=== PATIENT | male | born 1990 | race Hispanic/Latino ===

== ENCOUNTER 2017-12-28 18:26 | Emergency (ER) | payer SELFPAY ==
[2017-12-28 19:03] LABS: #Basophils 0.1 thou/uL (0.0-0.2); #Eosinphils 0.1 thou/uL (0.0-0.7); #Lymphocytes 3.7 thou/uL (1.20-3.40); #Monocytes 0.5 thou/uL (0.11-0.59); #Neutrophils 5.6 thou/uL (1.40-6.50); %Basophils 0.6 % (0.0-1.0); %Eosinophils 0.6 % (0.0-10.0); %Monocytes 4.8 % (0.0-10.0); %Neutrophils 56.9 % (42.0-75.0); Hemoglobin 15.6 g/dL (14.0-18.0); Mean Corpuscular HGB CONC 35.3 g/dL (32.0-36.0); Mean Corpuscular Hemoglobin 32.1 pg (27.0-31.0); Mean Platelet Volume 7.6 fL (7.4-10.4); Platelet Count 249 thou/uL (130-400); RBC Distribution Width 11.6 % (11.5-14.5); Red Blood Cell (RBC) Count 4.87 mill/uL (4.70-6.10); White Blood Cell (WBC) Count 9.9 thou/uL (4.8-10.8)
[2017-12-28 19:23] LABS: ALT (SGPT) 22 U/L (8-55); AST (SGOT) 17 U/L (5-34); Albumin 4.4 g/dL (3.5-5.0); Alkaline Phosphatase 75 U/L (40-150); Anion Gap 15 mmol/L (10-20); BUN (Urea Nitrogen) 11 mg/dL (8.9-20.6); Bilirubin, Total 0.4 mg/dL (0.2-1.2); CK (CPK) 145 U/L (30-200); Calc. Creatinine Clearance 0 mL/min (70-130); Calcium 9.4 mg/dL (7.8-10.44); Carbon Dioxide 21 mmol/L (22-29); Chloride 106 mmol/L (98-107); Estimated GFR-MDRD Greater than 90; Globulin 3.1 g/dL (2.4-3.5); Glucose 114 mg/dL (70-105); Potassium 3.8 mmol/L (3.5-5.1); Protein, Total 7.5 g/dL (6.0-8.3); Sodium 138 mmol/L (136-145)
[2017-12-28 19:29] LABS: Acetaminophen Less than 6.0 mcg/mL (10.0-30.0); Alcohol Less than 10 mg/dL (Less than 10); Salicylate Less than 8.0 mg/dL (15.0-30.0)
[2017-12-28] MEDS ORDERED: Adacel (T-DAP) 0.5 ML VIAL ONE (20:31)
[2017-12-28 20:51] LABS: Bilirubin Negative (Negative); Blood, Urine Negative (Negative); Clarity CLEAR (Clear); Glucose, Urine (Dipstick) Negative (Negative); Leukocyte Negative (Negative); Nitrite Negative (Negative); Protein, Urine (Dipstick) Negative (Neg-Trace); Specific Gravity, Urine 1.024 (1.002-1.036); Urobilinogen 0.2 mg/dL (0.2-1.0)
[2017-12-28 21:05] LABS: Amphetamine Not Detected (NotDetected); Barbiturates Screen Not Detected (NotDetected); Benzodiazepine Screen Not Detected (NotDetected); Cocaine Metabolite Screen Not Detected (NotDetected); Medtox Control Line Valid? VALID (VALID); Medtox Reader # READER 1; Methadone Not Detected (NotDetected); Methamphetamine Not Detected (NotDetected); Opiate Screen Not Detected (NotDetected); Oxycodone Screen Not Detected (NotDetected); Phencyclidine (PCP) Not Detected (NotDetected); THC/Cannabinoid Screen Not Detected (NotDetected); Tricyclic Screen Not Detected (NotDetected)
[2017-12-29] MEDS ORDERED: diphenhydrAMINE 50 MG CAP ONE (00:06)
[2017-12-29] MEDS ORDERED: Nicotine 14 MG PATCH TOP SCH (01:00)
[2017-12-29] MEDS ORDERED: Bacitracin Zinc 1 Packet ONE (14:04)
== END 2017-12-30 11:57 ==
LOC: ERS 18:26
DX: S51.812A Laceration without foreign body of left forearm, initial encounter (principal); S10.91XA Abrasion of unspecified part of neck, initial encounter; S20.311A Abrasion of right front wall of thorax, initial encounter; F32.9 Major depressive disorder, single episode, unspecified; F17.210 Nicotine dependence, cigarettes, uncomplicated; Z23 Encounter for immunization; X78.1XXA Intentional self-harm by knife, initial encounter
CPT/HCPCS: 36415; 80053; 80306; 80307; 81003; 82550; 84443; 85025; 90471; 90715; 93005

== ENCOUNTER 2018-07-13 18:00 | Emergency (ER) | payer OTHER, SELFPAY ==
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
== END 2018-07-13 19:02 | disposition home or self-care (01) ==
LOC: ERS 18:00
DX: G89.11 Acute pain due to trauma (principal); R51 Headache; F17.210 Nicotine dependence, cigarettes, uncomplicated; V49.40XA Driver injured in collision with unspecified motor vehicles in traffic accident, initial encounter
CPT/HCPCS: 70450; 71045; 72125; G0390

== ENCOUNTER 2019-04-27 17:17 | Emergency (ER) | payer OTHER, SELFPAY ==
[2019-04-27] MEDS ORDERED: Acetaminophen 500 MG TAB ONE (18:16)
== END 2019-04-27 18:47 | disposition home or self-care (01) ==
LOC: ERS 17:17
DX: J11.1 Influenza due to unidentified influenza virus with other respiratory manifestations (principal); F17.210 Nicotine dependence, cigarettes, uncomplicated; Z71.6 Tobacco abuse counseling
CPT/HCPCS: 87804; 99406

== ENCOUNTER 2020-07-10 14:09 | Emergency (ER) | payer SELFPAY ==
[2020-07-10] MEDS ORDERED: Acetaminophen 500 MG TAB ONE (16:06)
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
== END 2020-07-10 16:52 | disposition home or self-care (01) ==
LOC: ERS 14:09
DX: F07.81 Postconcussional syndrome (principal); F17.210 Nicotine dependence, cigarettes, uncomplicated; V89.2XXA Person injured in unspecified motor-vehicle accident, traffic, initial encounter
CPT/HCPCS: 70450; 72125

== ENCOUNTER 2025-07-02 22:26 | Emergency (ER) | payer BC, OTHER | END 2025-07-02 22:50 | LOC: ERS 22:26 | DX: F41.0 Panic disorder [episodic paroxysmal anxiety] (principal); F17.210 Nicotine dependence, cigarettes, uncomplicated | CPT/HCPCS: 99283 ==